=== PATIENT | male | born 1990 | race Caucasian/White ===

== ENCOUNTER 2018-07-21 14:56 | Emergency (ER) | payer OTHER, SELFPAY ==
[2018-07-21 14:57] VITALS: BP 152/100; BP 160/106; PULSE 103; PULSE 93; RESP 18; TEMP 36.8; O2SAT 96; O2SAT 97; BMI 42.8
--- NOTE | 2018-07-21 15:35 | EKG12_ITS ---
Test Reason : NEURO SYM Blood Pressure : / mmHG Vent. Rate : 080 BPM Atrial Rate : 080 BPM P-R Int : 156 ms QRS Dur : 092 ms QT Int : 344 ms P-R-T Axes : 037 -06 012 degrees QTc Int : 396 ms Normal sinus rhythm Voltage criteria for left ventricular hypertrophy Abnormal ECG Confirmed by GLADYS NICHOLS, FABIAN ([id number]), video editor KARTHIKEYAN PERLA ([id number]) on 07/24/2018 11:33:39 AM Referred By: Confirmed By:FABIAN GRAHAM MD
--- NOTE | 2018-07-21 15:36 | MRI_ITS ---
STUDY: MRI BRAIN WITHOUT CONTRAST REASON FOR EXAM: Male, 27 years old. Blurred vision and right arm numbness TECHNIQUE: Standardized multiplanar fat and water weighted pulse sequences were obtained. COMPARISON: None. FINDINGS: Normal size of the ventricles and extra-axial spaces for the patient's age. Normal white matter tracts of the supratentorial brain. Normal bilateral basal ganglia. Normal thalami. There is no extra-axial fluid accumulation. Normal flow voids within the major intracranial circulation suggesting patency by spin echo criteria. Normal sella turcica, pituitary gland, infundibular stalk, optic chiasm and hypothalamus. Normal tectal plate and pineal gland. Normal midbrain, umer and medulla. Normal cerebellum. Normal basal cisterns. Normal bilateral temporal bones. Normal bilateral internal auditory canals. No demonstrated orbital abnormality, within the constraints of a routine brain study. Small polypoid mucosal lesion in the right ethmoid air cells Normal calvarium and skull base. Normal visualized soft tissue structures. Normal visualized upper cervical spine. MRI/Brain without Contrast IMPRESSION: Normal unenhanced MRI of the brain. Mild right ethmoid sinus disease Electronically Signed: Boone Baires MD at 17:52 EDT , Service support ,
--- NOTE | 2018-07-21 15:43 | ED.RN ---
NO OLD EKG'S IN MUSE
--- NOTE | 2018-07-21 15:44 | ED.DCSUM_ITS ---
- ER Visit Summary Date of Service: 07/21/18 Chief Complaint: Transient blurred vision and weakness History of Present Illness: The patient is a 27 M who was carrying a box, it was not particularly heavy, he developed transient blurred vision and paresthesia in his right arm. This lasted about 45 minutes and currently he is improved. He is now asymptomatic. He did not have any speech problems, he had no confusion. He had no motor difficulties. Physical Examination: Not appear in acute distress. Moist mucous membranes, no obvious facial deformity No C-spine tenderness supple neck. Regular rate and rhythm without any obvious murmurs Clear lungs bilaterally speaking in full sentences without any obvious respiratory distress Abdomen soft and nontender no guarding or rebound Moves all extremities without any difficulty or pain. Skin does not show any obvious rashes or lesions, no trauma. Alert oriented ?3 with no gross focal deficit. Normal gait, normal cerebellar. NIH stroke scale is 0. Emergency Department Course and Treatment: Patient underwent an MRI which was negative. His symptoms have resolved. He has a normal EKG. I am comfortable discharging him in stable condition. Discharge stable condition Impression: Transient blurred vision This note was generated with pluri[employer] dictation software. It may contain incorrect words, spelling, and punctuation that were not noted in review of the chart prior to signing ED Disposition - Plan for ED Patient: Disposition: Home or Assisted Living Chief Complaint: Weakness Instructions: ED Weakness [facility] Referrals: Jay Wilson [Primary Care Provider] - 3-5 Days
[2018-07-21] MEDS: Aspirin 81 MG TAB.CHEW 324 MG PO (15:46)
[2018-07-21 16:21] LABS: Absolute Lymphocyte Count 2.09 X10^3/ul (0.83-4.51); Basophil# 0.02 X10^3/uL; Basophil% 0.3 % (0-1); Eosinophil# 0.29 X10^3/uL; Eosinophils% 4.8 % (0-5); Hematocrit 40.1 % (40-54); Hemoglobin 12.9 g/dl (13.0-16.5); Lymphocyte # 2.09 X10^3/ul (4.0); Lymphocyte % 34.7 % (19-41); Mean Corp Hgb Conc 32.2 g/gl (32-36); Mean Corpuscular Hgb 24.8 pg (27.0-32.0); Mean Corpuscular Volume 77.1 fL (80-94); Mean Platelet Vol. 10.6 fl (6.2-12.0); Monocyte# 0.64 X10^3/uL; Monocyte% 10.6 % (0-10); Neutrophil # 2.97 X10^3/uL (2.7-7.7); Neutrophil % 49.4 % (47-70); Platelet Count 262 K/mm3 (150-450); RBC Distribution Width CV 13.8 % (11.6-14.6); RBC Distribution Width SD 39.2 fl (35.1-43.9)
[2018-07-21 16:25] LABS: POSITIVE COUNT NO; POSITIVE DIFFERENTIAL NO; POSITIVE MORPHOLOGY NO
[2018-07-21 16:30] LABS: ALB/GLOB Ratio 1.1 RATIO (0.9-2.4); AST(SGOT) 13 U/L (15-37); Alanine Aminotransfer ALT/SGPT 28 U/L (16-61); Albumin, Serum 4.1 g/dL (3.2-5.0); Alkaline Phosphatase 54 U/L (45-117); Anion Gap 8 (5-15); BUN 13 mg/dL (7-18); BUN/Creat Ratio 14.9 RATIO (10-20); Calcium,Total 9.1 mg/dL (8.5-10.1); Chloride 106 mmol/L (98-107); Creatinine, Serum 0.87 mg/dL (0.70-1.30); EST Glomerular Filtration Rate 110 mL/min (>60); Est Glom Filt Rate - Afr Amer 133 mL/min (>60); Estimated Creatinine Clearance 105.85 ml/min; Globulin 3.6 g/dL (2.2-4.2); Glucose 97 mg/dL (74-106); Protein, Total 7.7 g/dL (6.4-8.2); Sodium Level 140 mmol/L (136-145)
[2018-07-21 18:26] VITALS: PULSE 79; RESP 18; O2SAT 99
[2018-07-21 19:22] VITALS: BP 143/81; PULSE 78; RESP 16; O2SAT 98
== END 2018-07-21 19:28 | disposition home or self-care (01) ==
PROVIDERS: Emergency Provider Emergency Medicine; Family Provider Family Medicine; PCP Family Medicine
DX: H53.8 Other visual disturbances (principal); R20.2 Paresthesia of skin; R53.1 Weakness; N18.6 End stage renal disease; F32.9 Major depressive disorder, single episode, unspecified; Z79.899 Other long term (current) drug therapy
CPT/HCPCS: 70551; 80053; 84484; 85025; 93005; 99285; A4216

== ENCOUNTER → 2019-08-25 15:39 | Outpatient (CLI) | payer OTHER, SELFPAY | PROVIDERS: Family Provider Family Medicine; PCP Family Medicine; Referring Provider Family Medicine; Visit Provider Family Medicine | DX: I10 Essential (primary) hypertension (principal); R53.82 Chronic fatigue, unspecified; R06.83 Snoring | CPT/HCPCS: 95806 ==